=== PATIENT | female | born 1975 | race Two or more races ===

== ENCOUNTER 2024-09-20 10:59 | Emergency (ER) | payer OTHER ==
[~2024-09-20] VITALS: Ht 165.1 cm; Wt 54.4 kg
[2024-09-20] MEDS ORDERED: CEPH500C2 PO (12:00)
[2024-09-20] MEDS ORDERED: CEPHALEXIN MONOHYDRATE 500 MG CAPSULE PO ONE (12:05)
[2024-09-20] MEDS: CEPHALEXIN MONOHYDRATE 500 MG CAPSULE PO ONE (12:06)
[2024-09-20] MEDS ORDERED: IBUPROFEN 600 MG TABLET ONE (12:06)
[2024-09-20] MEDS: IBUPROFEN 600 MG TABLET PO ONE (12:12)
[2024-09-20 12:59] VITALS: BP 107/62; TEMP 98.2; O2SAT 98
== END 2024-09-20 12:59 | disposition home or self-care (01) ==
LOC: ER 11:05
DX: L03.115 Cellulitis of right lower limb (principal)